=== PATIENT | male | born 1990 | race American Indian/Alaskan Native ===

== ENCOUNTER 2018-10-22 21:20 | Emergency (ER) | payer SELFPAY ==
[2018-10-22 21:35] VITALS: BP 114/81; TEMP 99.2
--- NOTE | 2018-10-22 22:34 | C.PDOC ---
History Of Present Illness 28 year old male presents to the ED c/o left shoulder and neck pain. Patient reports that while at work yesterday she slipped on a staircase. Patient states he was able to get up on his own and go back to work. Patient states he initially felt ok, today felt tightness to his back and neck associated with a headache. Patient took Advil at home with no relief. Patient denies fever, chills, visual changes, LOC, head injury, nausea, vomit, weakness, numbness, seizure activity. Time Seen by Provider: 10/22/18 21:41 Chief Complaint (Nursing): Headache History Per: Patient History/Exam Limitations: no limitations Onset/Duration Of Symptoms: Days (1) Current Symptoms Are (Timing): Still Present Quality: Tightness Recent travel outside of the [place]: No Additional History Per: Patient Past Medical History Reviewed: Historical Data, Nursing Documentation, Vital Signs Vital Signs: Last Vital Signs Temp 99.2 F 10/22/18 21:32 Pulse 85 10/22/18 21:32 Resp 20 10/22/18 21:32 BP 114/81 10/22/18 21:32 Pulse Ox 99 10/22/18 21:32 - Medical History PMH: No Chronic Diseases Surgical History: No Surg Hx Family History: States: Unknown Family Hx - Social History Hx Alcohol Use: Yes Hx Substance Use: No - Immunization History Hx Tetanus Toxoid Vaccination: No Hx Influenza Vaccination: No Hx Pneumococcal Vaccination: No Review Of Systems Constitutional: Negative for: Fever, Chills, Weakness ENT: Negative for: Mouth Swelling Cardiovascular: Negative for: Chest Pain Respiratory: Negative for: Cough, Shortness of Breath Gastrointestinal: Negative for: Nausea, Vomiting, Diarrhea Musculoskeletal: Positive for: Neck Pain, Back Pain Skin: Negative for: Rash Neurological: Positive for: Headache. Negative for: Weakness, Numbness, Dizziness Physical Exam - Physical Exam Appears: Well, Non-toxic, No Acute Distress Skin: Normal Color, Warm, No Rash Head: Atraumatic, Normacephalic Eye(s): bilateral: Normal Inspection (no scleral icterus), PERRL, EOMI Ear(s): Bilateral: Normal (no drainage) Nose: Normal Oral Mucosa: Moist Throat: Normal, No Erythema, No Exudate, Other (no swellin, injection. airway patent) Neck: Normal ROM, Supple Chest: Symmetrical Cardiovascular: Rhythm Regular Respiratory: No Accessory Muscle Use, Other (normal inspiratory effort) Gastrointestinal/Abdominal: Soft, No Distention Back: Other (ambulating with steady gait) Extremity: Bilateral: Atraumatic, Normal ROM Pulses: Left Brachial: Normal, Right Brachial: Normal Neurological/Psych: Oriented x3, Normal Speech, Other (cranial nerves grossly intact) Gait: Steady ED Course And Treatment O2 Sat by Pulse Oximetry: 99 (ON RA) Pulse Ox Interpretation: Normal Medical Decision Making Medical Decision Making: Plan: * Flexeril 10 mg PO * Toradol 15 mg IM Patient reports improvement after medications were given. Patient is ambulating with steady gait in the ED, stable for discharge. Patient advised to follow up with PMD/clinic. Disposition Counseled Patient/Family Regarding: Diagnosis, Need For Followup, Rx Given - Disposition Disposition: HOME/ ROUTINE Disposition Time: 22:33 Condition: IMPROVED Prescriptions: Cyclobenzaprine [Flexeril] 10 mg PO BID #8 tab Ibuprofen [Motrin Tab] 800 mg PO TID PRN #21 tab PRN Reason: Pain, Moderate (4-7) Instructions: Upper Back Pain (DC), Headache, Adult (DC) Forms: General Discharge Instructions, [facility] (Bengali), Work Excuse - Clinical Impression Clinical Impression: Back pain, Headache - PA / [employer] / Resident Statement MD/DO has reviewed & agrees with the documentation as recorded. - Scribe Statement The provider has reviewed the documentation as recorded by the Scribe Regis Jerry All medical record entries made by the Scribe were at my direction and personally dictated by me. I have reviewed the chart and agree that the record accurately reflects my personal performance of the history, physical exam, medical decision making, and the department course for this patient. I have also personally directed, reviewed, and agree with the discharge instructions and disposition.
[2018-10-22 23:02] VITALS: PULSE 82; RESP 18
[2018-10-22 23:03] VITALS: O2SAT 99
== END 2018-10-22 23:02 | disposition home or self-care (01) ==
LOC: C.ER 21:20
DX: M54.9 Dorsalgia, unspecified (principal); R51 Headache
CPT/HCPCS: 96372; 99285; J1885